=== PATIENT | female | born 1990 | race Two or more races ===

== ENCOUNTER 2024-09-05 07:40 | Inpatient (IN) | payer BC, OTHER ==
[2024-09-05] MEDS: ELECTROLYTE-148 SOLN 1,000 ML IV SCH (08:30)
[2024-09-05 09:37] LABS: BASO % 0.4 % (0-2.0); EOS % 0.7 % (0-4.5); HEMATOCRIT 39.7 % (32.4-45.2); HEMOGLOBIN 13.3 GM/dL (10.7-15.3); LYMPH % 20.1 % (8-40); MCH 31.2 pg (25.7-33.7); MCHC 33.5 g/dl (32.0-36.0); MEAN CELL VOLUME 93.1 fl (80-96); MEAN PLT VOLUME 9.9 fl (7.5-11.1); MONO % 7.1 % (3.8-10.2); NEUT % 71.7 % (42.8-82.8); PLATELET COUNT 174 10^3/uL (134-434); RBC 4.26 M/mm3 (3.60-5.2); RDW 14.2 % (11.6-15.6); WHITE BLOOD COUNT 8.9 K/mm3 (4.0-10.0)
[2024-09-05 09:51] VITALS: BMI 36.0
[2024-09-05 09:51] LABS: INR 0.97 (0.83-1.09); PROTHROMBIN TIME (PATIENT) 10.6 SEC (9.7-13.0)
[2024-09-05 09:54] LABS: ACTIVATED PTT 27.1 SECONDS (25.2-36.5)
[2024-09-05] MEDS: OXYTOCIN 30 UNITS in 0.9% NS 30 UNIT/500 ML INFUS.BAG IVPB SCH (10:00)
[2024-09-05 10:01] LABS: CALCIUM 9.3 mg/dL (8.5-10.1); POTASSIUM 4.2 mmol/L (3.5-5.1)
[2024-09-05 10:02] LABS: BLOOD UREA NITROGEN 10.6 mg/dL (7-18)
[2024-09-05 10:05] LABS: CREATININE 0.4 mg/dL (0.55-1.3)
[2024-09-05] MEDS ORDERED: AMPICILLIN SODIUM 2 GM VIAL ONE ×2 (10:25→13:44)
[2024-09-05] MEDS: AMPICILLIN - 2 GM in SODIUM CHLORIDE 100 ML IVPB ONE (10:28)
[2024-09-05] MEDS: AMPICILLIN - 1 GM in SODIUM CHLORIDE 100 ML IVPB SCH (10:29)
[2024-09-05 16:20] LABS: SYPHILIS W/ RPR CONF NON-REACTIVE (NONREACTIVE)
[2024-09-05 17:18] LABS: HIV INTERPRETATION NEGATIVE (NEGATIVE)
[2024-09-05] MEDS ORDERED: AMPICILLIN SODIUM 1 GM VIAL ONE ×2 (18:03→22:34)
[2024-09-05] MEDS ORDERED: BUTORPHANOL TARTRATE 2 MG/ML VIAL ONE (21:24)
[2024-09-05] MEDS: BUTORPHANOL TARTRATE 1 MG/ML VIAL IVPB ONE (21:30)
[2024-09-05] MEDS: PROMETHAZINE HCL 25 MG/1 ML VIAL IVPB ONE (21:30)
[2024-09-05] MEDS ORDERED: SODIUM CHLORIDE 100 ML IVPB ONE (22:34)
[2024-09-06] MEDS ORDERED: SODIUM CHLORIDE 100 ML IVPB ONE ×3 (02:08→06:14)
[2024-09-06] MEDS ORDERED: AMPICILLIN SODIUM 1 GM VIAL ONE ×6 (02:08→22:05)
[2024-09-06] MEDS ORDERED: OXYTOCIN 30 UNITS in 0.9% NS 30 UNIT/500 ML INFUS.BAG IVPB ONE ×2 (12:24→19:40)
[2024-09-07] MEDS ORDERED: AMPICILLIN SODIUM 1 GM VIAL ONE ×3 (02:09→09:56)
[2024-09-07] MEDS ORDERED: OXYTOCIN 30 UNITS in 0.9% NS 30 UNIT/500 ML INFUS.BAG IVPB ONE (11:31)
[2024-09-07] MEDS ORDERED: ceFAZolin SODIUM 1 GM VIAL ONE (11:33)
[2024-09-07] MEDS ORDERED: FENTANYL CITRATE/PF 50 MCG/ML VIAL ONE (11:33)
[2024-09-07] MEDS ORDERED: ONDANSETRON 4 MG/2 ML VIAL ONE (11:33)
[2024-09-07] MEDS ORDERED: morphine SULFATE/PF 1 MG/2 ML (2cc Syringe - QUVA) ONE (11:34)
[2024-09-07] MEDS ORDERED: AZITHROMYCIN IVPB 500 MG/250 ML BAG IVPB ONE (12:33)
[2024-09-07] MEDS: AZITHROMYCIN IVPB 500 MG/250 ML BAG IVPB ONE (12:54)
[2024-09-07] MEDS ORDERED: KETOROLAC TROMETHAMINE 30 MG/1 ML VIAL ONE (13:25)
[2024-09-07] MEDS ORDERED: BENZOCAINE 28 GM HEMORRHOIDAL OINTMENT TP PRN (14:11)
[2024-09-07] MEDS ORDERED: METHYLERGONOVINE MALEATE 0.2 MG/1 ML AMP IM PRN (14:11)
[2024-09-07] MEDS ORDERED: WITCH HAZEL 50% (TUCKS) 40 PAD/JAR PAD TP PRN (14:11)
[2024-09-07] MEDS ORDERED: BENZOCAINE 20% 57 GM BOTTLE TP PRN (14:11)
[2024-09-07] MEDS ORDERED: ONDANSETRON 4 MG/2 ML VIAL IVPUSH PRN (14:15)
[2024-09-07] MEDS ORDERED: OXYTOCIN 20 UNITS in 0.9% NS 20 UNIT/1,000 ML INFUS.BAG IV ONE (14:19)
[2024-09-07 14:46] LABS: CORD HCO3 22.3 mmHg (20-29); CORD PCO2 54.2 mmHg (30-78); CORD pH 7.232 (7.14-7.44)
[2024-09-07 14:47] LABS: CORD PCO2 59.3 mmHg (30-78); CORD pH 7.206 (7.14-7.44)
[2024-09-07] MEDS: OXYTOCIN 20 UNITS in 0.9% NS 20 UNIT/1,000 ML INFUS.BAG IV SCH (15:00)
[2024-09-07] MEDS: morphine SULFATE/PF 1 MG/2 ML (2cc Syringe - QUVA) IT ONE (15:20)
[2024-09-07] MEDS: IBUPROFEN 800 MG/8 ML IJ IVPB PRN (19:39)
[2024-09-07] MEDS: SENNOSIDES/DOCUSATE COMBO (SENNA PLUS) TABLET (UD) PO PRN (19:40)
[2024-09-07] MEDS: SIMETHICONE 80 MG TAB.CHEW (FP) PO PRN (19:40)
[2024-09-08] MEDS ORDERED: oxyCODONE HCL 5 MG TABLET PO PRN (02:11)
[2024-09-08] MEDS: oxyCODONE HCL 5 MG TABLET PO PRN (03:40)
[2024-09-08] MEDS: IBUPROFEN 600 MG TABLET (FP) PO PRN (05:42)
[2024-09-08 06:34] LABS: BASO % 0.2 % (0-2.0); EOS % 0.8 % (0-4.5); HEMATOCRIT 31.5 % (32.4-45.2); HEMOGLOBIN 10.5 GM/dL (10.7-15.3); LYMPH % 13.5 % (8-40); MCH 31.4 pg (25.7-33.7); MCHC 33.4 g/dl (32.0-36.0); MEAN CELL VOLUME 94.2 fl (80-96); MEAN PLT VOLUME 9.6 fl (7.5-11.1); MONO % 7.2 % (3.8-10.2); NEUT % 78.3 % (42.8-82.8); PLATELET COUNT 133 10^3/uL (134-434); RBC 3.34 M/mm3 (3.60-5.2); RDW 14.3 % (11.6-15.6); WHITE BLOOD COUNT 9.8 K/mm3 (4.0-10.0)
[2024-09-08] MEDS: ENOXAPARIN NA (PORCINE) 40 MG/0.4 ML DISP.SYRIN SQ SCH (09:56)
[2024-09-08] MEDS ORDERED: BISACODYL 10 MG SUPP.RECT RC PRN (14:11)
[2024-09-08 21:21] VITALS: RESP 18
[2024-09-08] MEDS: ACETAMINOPHEN 325 MG TABLET (FP) PO PRN (21:50)
[2024-09-10 06:53] LABS: HEMOGLOBIN 10.1 GM/dL (10.7-15.3); MCH 31.6 pg (25.7-33.7); MCHC 33.7 g/dl (32.0-36.0); MEAN CELL VOLUME 93.9 fl (80-96); MEAN PLT VOLUME 9.7 fl (7.5-11.1); PLATELET COUNT 143 10^3/uL (134-434); RDW 14.2 % (11.6-15.6); WHITE BLOOD COUNT 8.1 K/mm3 (4.0-10.0)
[2024-09-10 11:40] LABS: ANISOCYTOSIS 0; HELMET CELLS 0; HOWELL-JOLLY BODIES 0; MACROCYTOSIS 0; OVALOCYTE 0; ROULEAU 0; SICKELED CELLS 0; TARGET CELLS 0; TEAR DROP CELLS 0; TOXIC GRANULATION 0
[2024-09-11 10:54] VITALS: BP 121/86; PULSE 102; TEMP 97.5
== END 2024-09-11 12:30 | disposition home or self-care (01) | DRG 788 ==
LOC: JLDR 07:40 → J3W 09-07 17:13
PROVIDERS: ADMIT Obstetrics & Gynecology; ATTEND Obstetrics & Gynecology
PROC: 10D00Z1 Extraction of Products of Conception, Low, Open Approach (ICD-10-PCS; principal; 2024-09-07)
DX: O48.0 Post-term pregnancy (principal); Z3A.41 41 weeks gestation of pregnancy; O99.824 Streptococcus B carrier state complicating childbirth; O61.9 Failed induction of labor, unspecified; Z37.0 Single live birth; O66.40 Failed trial of labor, unspecified; O75.89 Other specified complications of labor and delivery
CPT/HCPCS: 36415; 36600; 80048; 82803; 85025; 85610; 85730; 86780; 86850; 86900; 86901; 87389; 88307-TC